=== PATIENT | male | born 1985 | race Caucasian/White ===

== ENCOUNTER 2018-03-01 21:28 | Emergency (ER) | payer BC ==
[~2018-03-01] VITALS: Ht 182.9 cm; Wt 86.8 kg
[~2018-03-01 21:28] MED LIST: CIPRO500 MG PO; LOMOTIL TABLET1 EACH PO; METRONIDAZOLE500 MG PO; TRAMADOL HCL50 MG PO; ZOFRAN4 MG PO
[2018-03-01] MEDS ORDERED: PERCOCET 5/31 TABLET PO (23:50)
[2018-03-02 00:05] VITALS: BP 138/76
== END 2018-03-02 00:07 | disposition home or self-care (01) ==
LOC: EME 21:28
DX: S43.102A Unspecified dislocation of left acromioclavicular joint, initial encounter (principal); W17.89XA Other fall from one level to another, initial encounter; W28.XXXA Contact with powered lawn mower, initial encounter
CPT/HCPCS: 73030; 99281; 99284